=== PATIENT | male | born 1970 | race Caucasian/White ===

== ENCOUNTER → 2022-10-17 10:28 | Outpatient (BNVA) | payer OTHER, SELFPAY | PROVIDERS: Visit Provider Internal Medicine Rheumatology | DX: Z79.899 Other long term (current) drug therapy (principal); M17.12 Unilateral primary osteoarthritis, left knee | CPT/HCPCS: 36415; 73130; 73562; 73630; 80076; 82306; 82565; 85025; 85651; 86038; 86140; 86200; 86431 ==

== ENCOUNTER → 2022-11-29 10:08 | Outpatient (BNVA) | payer OTHER, SELFPAY | PROVIDERS: Visit Provider Internal Medicine Rheumatology | DX: M19.90 Unspecified osteoarthritis, unspecified site (principal); Z79.899 Other long term (current) drug therapy | CPT/HCPCS: 80076; 82565; 84550; 85025; 85651; 86140 ==

== ENCOUNTER → 2023-05-03 15:21 | Outpatient (BNVA) | payer OTHER, SELFPAY | PROVIDERS: Visit Provider Internal Medicine Rheumatology | DX: M10.9 Gout, unspecified (principal); Z79.899 Other long term (current) drug therapy | CPT/HCPCS: 36415; 80076; 82565; 84550; 85025; 86140 ==

== ENCOUNTER → 2023-11-21 15:20 | Outpatient (BNVA) | payer OTHER, SELFPAY | PROVIDERS: Visit Provider Internal Medicine Rheumatology | DX: M10.9 Gout, unspecified (principal); Z79.899 Other long term (current) drug therapy | CPT/HCPCS: 80076; 82565; 84550; 85025; 85651; 86140 ==

== ENCOUNTER 2024-02-13 11:35 | Emergency (ER) | payer OTHER, SELFPAY ==
[2024-02-13 11:42] VITALS: BP 142/96; PULSE 95; RESP 18; TEMP 37.1; O2SAT 93; BMI 26.6
[2024-02-13 11:46] VITALS: BP 142/96; PULSE 94; RESP 16; O2SAT 93
--- NOTE | 2024-02-13 11:57 | W.ED.WEAKNES ---
HPI - Weakness General: Chief complaint: Weakness Stated complaint: blood sugar high, dizzy, disoriented, vomiting Time Seen by Provider: 02/13/24 11:37 Source: patient Mode of arrival: ambulatory Limitations: no limitations History of Present Illness: 53-year-old male states that he has been hyperglycemic. States he not felt well the last 2 days and his blood sugar had been running high has been having a hard time controlling it he states that he had had some vomiting this morning as well. States that it read high on his meter when he checked his glucose. Denies any fever he states he does have a gout flare at this time as well Associated symptoms: Reports nausea and vomiting; Denies chest pain, chills, dysuria, fever(s) or headache(s) Review of Systems Const: Reports: fatigue; Denies: fever(s), chills, body aches or change in appetite ENMT: Denies: throat pain or dental pain Card: Denies: chest pain Resp: Denies: dyspnea GI: Reports: nausea and vomiting; Denies: abdominal pain or diarrhea : Denies: dysuria Musc: Denies: neck pain or back pain Skin/Breast: Denies: rash Neuro: Denies: headache(s) PFSH ED PFSH: Medical History Immunization counseling High risk medication use Hypertension Gout Inflammatory arthritis Surgical History History of hernia repair Family History Other Cancer Chronic kidney disease (CKD) Hypertension Rheumatoid arthritis Denies family history of Diabetes Stroke Social History Smoking and tobacco/nicotine status: never used tobacco/nicotine Alcohol intake: never Physical Exam Const: COMMON NORMALS: no acute distress, patient oriented x3 and healthy appearing HENMT: COMMON NORMALS: normocephalic and atraumatic HEAD & SCALP: normocephalic and atraumatic Eye: COMMON NORMALS: Equal, round and reactive pupils present and EOMs intact bilaterally PUPIL: Yes Equal, round and reactive pupils present Neck/C-Spine: COMMON NORMALS: full ROM and supple Chest: COMMONS NORMALS: normal inspection of the chest and normal palpation of entire chest wall Resp: COMMON NORMALS: normal respiratory effort, No retractions, No use of accessory muscles and clear to auscultation bilaterally AUSCULTATION: clear to auscultation bilaterally Cardio: COMMON NORMALS: regular rate, regular rhythm and No murmurs present (Cardio) RATE: regular rate RHYTHM: regular rhythm GI: COMMON NORMALS: Normal to inspection, nondistended, normoactive bowel sounds present, Soft to palpation, non-tender and no masses PALPATION: Yes Soft to palpation Extremity: COMMON NORMALS: normal to inspection and full ROM Neuro: COMMON NORMALS: patient oriented x3, moves all extremities and no focal motor deficits Psych: COMMON NORMALS: mental status grossly normal, Normal thought process present and cooperative THOUGHT PROCESS: Normal thought process present Skin: COMMON NORMALS: no rashes or lesions noted and no wounds GENERAL SKIN EXAM: no rashes or lesions noted Course Vital Signs: Vital signs: Vital Signs Temperature 98.7 F 02/13/24 11:42 Pulse Rate 80 02/13/24 13:18 Respiratory Rate 18 02/13/24 13:18 Blood Pressure 139/88 02/13/24 13:18 Pulse Oximetry 91 02/13/24 13:18 Oxygen Delivery Me thod Room Air 02/13/24 13:18 MDM - Weakness Medical Decision Making Patient presents here with hyperglycemia he feels much improved here after fluids and insulin. His blood sugars came down as well he has no signs of DKA he stable for discharge he is follow-up with PCP return if worsening Medical Records I reviewed the patient's medical records. Lab Data I reviewed the patient's lab results. 02/13/24 11:48 02/13/24 11:48 Laboratory Results WBC 8.72 10^3/uL (3.29-11.43) 02/13/24 11:48 RBC 4.97 10^6/uL (3.85-5.65) 02/13/24 11:48 Hgb 15.00 g/dL (11.27-16.99) 02/13/24 11:48 Hct 43.3 % (37-53) 02/13/24 11:48 MCV 87.1 fl (82-101) 02/13/24 11:48 MCH 30.2 pg (27-33) 02/13/24 11:48 MCHC 34.6 g/dL (30-55) 02/13/24 11:48 RDW 12.6 % (12.1-15.1) 02/13/24 11:48 Plt Count 272 10^3/cmm (157-399) 02/13/24 11:48 MPV 10.7 fL (7.4-10.4) H 02/13/24 11:48 Neut % (Auto) 80.0 % 02/13/24 11:48 Lymph % (Auto) 12.5 % 02/13/24 11:48 Traverse % (Auto) 4.9 % 02/13/24 11:48 Eos % (Auto) 1.0 % 02/13/24 11:48 Baso % (Auto) 1.1 % 02/13/24 11:48 Neut # (Auto) 6.97 10^3/uL (1.8-7.7) 02/13/24 11:48 Lymph # (Auto) 1.1 10^3/uL (0.8-4.8) 02/13/24 11:48 Traverse # (Auto) 0.4 10^3/uL (0.2-0.9) 02/13/24 11:48 Eos # (Auto) 0.1 10^3/uL (0.0-0.8) 02/13/24 11:48 Baso # (Auto) 0.1 10^3/uL (0.0-0.1) 02/13/24 11:48 Nucleated RBC % (auto) 0 % 02/13/24 11:48 Nucleated RBCs # 0.0 /100WBC 02/13/24 11:48 Sodium 130 mmol/L (136-145) L 02/13/24 11:48 Potassium 4.8 mmol/L (3.5-5.1) 02/13/24 11:48 Chloride 92 mmol/L (98-107) L 02/13/24 11:48 Carbon Dioxide 23 mmol/L (22-29) 02/13/24 11:48 Anion Gap 19.8 (5-19) H 02/13/24 11:48 BUN 24 mg/dL (6-20) H 02/13/24 11:48 Creatinine 1.2 mg/dL (0.7-1.2) 02/13/24 11:48 GFR Calculation 62.9 mL/min (90-130) L 02/13/24 11:48 Glucose 628 mg/dL (65-115) H* 02/13/24 11:48 POC Glucose 351 mg/dL (70-110) H 02/13/24 14:16 Calculated Osmolality 303 mOsm/kg (285-295) H 02/13/24 11:48 Calcium 9.6 mg/dL (8.5-10.5) 02/13/24 11:48 Total Bilirubin 1.7 mg/dL (0.15-1.2) H 02/13/24 11:48 AST 18 U/L (0-40) 02/13/24 11:48 ALT 23 U/L (0-41) 02/13/24 11:48 Alkaline Phosphatase 220 U/L (40-130) H 02/13/24 11:48 Total Protein 7.1 g/dL (6.6-8.7) 02/13/24 11:48 Albumin 4.3 g/dL (3.5-5.2) 02/13/24 11:48 Globulin 2.8 g/dL (1.3-4.6) 02/13/24 11:48 Lipase 46 U/L (13-60) 02/13/24 11:48 No radiology studies performed this visit Discharge Plan Discharge Patient Disposition: Home Clinical Impression: Hyperglycemia Condition: Stable Prescriptions: New ondansetron 4 mg tablet,disintegrating 4 mg PO Q6H PRN (Reason: nausea and vomiting) Qty: 14 0RF No Action allopurinol 300 mg tablet 300 mg PO DAILY Qty: 90 1RF colchicine 0.6 mg tablet 0.6 mg PO DAILY Qty: 90 1RF prednisone 10 mg tablet 10 mg PO DAILY PRN (Reason: for flares) Qty: 30 1RF metformin 500 mg tablet See Rx Instructions .ROUTE .COMPLEX Rx Instructions: Take 2 tablets by mouth in the morning and 1 tablet in the evening. atorvastatin 10 mg tablet 10 mg PO QPM metoprolol succinate 50 mg tablet extended release 24 hr 50 mg PO DAILY Discharge Orders: Discharge ED (Routine); Ordered 02/13/24 Ordered By: Sonia Bansal Discharge Diet: Advance as tolerated Discharge Activity: Resume usual activity Patient Instructions: Diabetic Hyperglycemia (ED) Coding Level of Care Code ED [employer] for [employer] Related Data Home Medications Medication Instructions Recorded Confirmed atorvastatin 10 mg tablet 10 mg PO QPM 02/13/24 02/13/24 metformin 500 mg tablet See Rx Instructions .Route .COMPLEX 02/13/24 02/13/24 metoprolol succinate 50 mg 50 mg PO DAILY 02/13/24 02/13/24 tablet,extended release 24 hr Previous Rx's Medication Instructions Recorded allopurinol 300 mg tablet 300 mg PO DAILY #90 tabs 11/21/23 colchicine 0.6 mg tablet 0.6 mg PO DAILY #90 tabs 11/21/23 prednisone 10 mg tablet 10 mg PO DAILY PRN for flares #30 11/21/23 tabs ondansetron 4 mg disintegrating 4 mg PO Q6H PRN nausea and 02/13/24 tablet vomiting #14 tabs Allergies Allergy/AdvReac Type Severity Reaction Status Date / Time No Known Allergies Allergy Verified 05/03/23 14:34
[2024-02-13] MEDS: ondansetron 2 mg/ML SDV 2 mL 4 MG IVP (12:02)
[2024-02-13 12:03] VITALS: RESP 16; O2SAT 94
[2024-02-13] MEDS: sodium chloride 0.9% 1,000 ML 999 ML IV ×2 (12:03→12:52)
[2024-02-13] MEDS: morphine 4 mg/mL SDV 1 mL IVP (12:03)
[2024-02-13] MEDS: insulin regular-human 100 units/1 mL 12 UNIT IVP (12:09)
[2024-02-13 12:11] LABS: Basophils # 0.1 10^3/uL (0.0-0.1); Basophils % 1.1 %; Eosinophils # 0.1 10^3/uL (0.0-0.8); Hematocrit 43.3 % (37-53); Lymphocytes # 1.1 10^3/uL (0.8-4.8); Lymphocytes % 12.5 %; Mean Corpuscular HGB Conc 34.6 g/dL (30-55); Mean Corpuscular Hemoglobin 30.2 pg (27-33); Mean Corpuscular Volume 87.1 fl (82-101); Mean Platelet Volume 10.7 fL (7.4-10.4); Monocytes # 0.4 10^3/uL (0.2-0.9); Monocytes % 4.9 %; Neutrophils # 6.97 10^3/uL (1.8-7.7); Nucleated Red Blood Cells % 0 %; Platelet Count 272 10^3/cmm (157-399); Red Blood Count 4.97 10^6/uL (3.85-5.65); Red Cell Distribution Width 12.6 % (12.1-15.1); White Blood Count 8.72 10^3/uL (3.29-11.43)
[2024-02-13 12:22] LABS: Alanine Aminotransferase 23 U/L (0-41); Albumin Level 4.3 g/dL (3.5-5.2); Alkaline Phosphatase 220 U/L (40-130); Anion Gap 19.8 (5-19); Aspartate Amino Transferase 18 U/L (0-40); Blood Urea Nitrogen 24 mg/dL (6-20); Calcium 9.6 mg/dL (8.5-10.5); Carbon Dioxide 23 mmol/L (22-29); Chloride 92 mmol/L (98-107); Globulin 2.8 g/dL (1.3-4.6); Glomerular Filtration Rate 62.9 mL/min (90-130); Lipase 46 U/L (13-60); Osmolality Calculated 303 mOsm/kg (285-295); Potassium 4.8 mmol/L (3.5-5.1); Sodium 130 mmol/L (136-145); Total Bilirubin 1.7 mg/dL (0.15-1.2); Total Protein 7.1 g/dL (6.6-8.7)
[2024-02-13 12:24] LABS: Glucose 628 mg/dL (65-115)
[2024-02-13 13:17] LABS: Glucose Point of Care 433 mg/dL (70-110)
[2024-02-13 13:18] VITALS: BP 139/88; PULSE 80; RESP 18; O2SAT 91
[2024-02-13] MEDS: sodium chloride 0.9% 500 ML 999 ML IV (13:30)
[2024-02-13] MEDS: insulin regular-human 100 units/1 mL 8 UNIT IVP (13:31)
[2024-02-13 14:22] LABS: Glucose Point of Care > 600 mg/dL (70-110)
[2024-02-13 14:22] LABS: Glucose Point of Care 351 mg/dL (70-110)
[2024-02-13 14:46] VITALS: BP 127/87; PULSE 86; RESP 16; O2SAT 96
== END 2024-02-13 14:50 | disposition home or self-care (01) ==
PROVIDERS: Emergency Provider Emergency Medicine
DX: R73.9 Hyperglycemia, unspecified (principal); Z79.84 Long term (current) use of oral hypoglycemic drugs; I10 Essential (primary) hypertension
CPT/HCPCS: 36416; 80053; 82962; 83690; 85025; 96361; 96374; 96375; 96376; 99284; J1815; J2270; J2405; J7030; J7040